=== PATIENT | female | born 1980 | race Two or more races ===

== ENCOUNTER → 2024-12-12 | Outpatient (CLI) | payer MEDICAID, SELFPAY ==
--- NOTE | 2024-12-12 14:00 | XR_ITS ---
Examination: Diagnostic digital mammography, bilateral Computer aided detection 3-D breast Tomosynthesis, bilateral Date and time of exam: December 12, 2024 1406 hours INDICATIONS: Lump in the left breast note is beginning 5 months ago Technique: Nonmagnified MLO, CC views of the breasts to been obtained, reconstructed from 3-D Tomosynthesis images. R2 computer aided detection program utilized for evaluation of suspicious masses and/or abnormal calcifications. 3-D Tomosynthesis images obtained. Findings: The breasts are heterogeneously dense, which may obscure small masses Focal asymmetry 12 mm is noted upper outer left breast, partially circumscribed Impression: BI-RADS Category 0: Incomplete: Need additional imaging evaluation Recommend left breast sonography follow-up to assess 12 mm focal asymmetry upper outer left breast on the current study.
== END | disposition home or self-care (01) ==
LOC: CDIM 13:54
PROVIDERS: PCP Behavior Technician; Referring Provider Behavior Technician; Visit Provider Behavior Technician
DX: R92.8 Other abnormal and inconclusive findings on diagnostic imaging of breast (principal); N64.89 Other specified disorders of breast
CPT/HCPCS: 77062; 77066; G0279